=== PATIENT | male | born 1990 | race Caucasian/White ===

== ENCOUNTER 2017-11-27 02:39 | Emergency (ER) | payer OTHER, SELFPAY ==
[2017-11-27 02:41] VITALS: BP 147/87; PULSE 94; RESP 16; TEMP 36.7; O2SAT 98; BMI 32.8
--- NOTE | 2017-11-27 02:55 | RAD_ITS ---
STUDY: X-RAY CHEST REASON FOR EXAM: Male, 27 years old. Flank pain TECHNIQUE: Frontal view COMPARISON: None. FINDINGS: The lungs are clear and expanded. There is no demonstrated pleural abnormality. Normal size heart. Normal mediastinum and ana. Normal visualized pulmonary arteries. Normal visualized aortic arch and descending thoracic aorta. Normal visualized thoracic spine. Normal visualized ribs, clavicles, and shoulders. There is no demonstrated abnormality of the visualized soft tissue structures of the upper abdomen. RAD/Chest 1 View (Portable) IMPRESSION: Normal x-ray examination of the chest. Electronically Signed: Vaughn Leavitt MD at 3:55 EDT , Service support ,
--- NOTE | 2017-11-27 02:55 | EKG12_ITS ---
Test Reason : FLANK PAIN Blood Pressure : / mmHG Vent. Rate : 086 BPM Atrial Rate : 086 BPM P-R Int : 166 ms QRS Dur : 090 ms QT Int : 342 ms P-R-T Axes : 024 066 042 degrees QTc Int : 409 ms Normal sinus rhythm Normal ECG Confirmed by MEHRDAD SANCHEZ ([id number]), movie editor LUCIA MCGRAW ([id number] on 11/30/2017 1:39:52 PM Referred By: ANGELIKA Confirmed By:MEHRDAD SANCHEZ
--- NOTE | 2017-11-27 02:56 | CT_ITS ---
STUDY: CT ABDOMEN AND PELVIS WITHOUT CONTRAST REASON FOR EXAM: Male, 27 years old. Abdominal pain RADIATION DOSAGE (If Supplied By Facility): CTDIvol = ( 13.33 ) mGy, DLP = ( 669.00 ) mGycm TECHNIQUE: Transaxial images were obtained from the dome of the diaphragm to the symphysis pubis without oral contrast, and without intravenous contrast. Sagittal and coronal images were reconstructed. Individualized dose optimization techniques were used for this CT. COMPARISON: None. FINDINGS: The visualized lung bases are unremarkable. The visualized portions of the heart are within normal limits. Normal liver. Normal gallbladder and extrahepatic biliary system. Normal spleen. Normal pancreas. Normal bilateral adrenal glands. Normal right kidney. Normal left kidney. Normal visualized stomach. Normal small intestine. There are multiple colonic diverticula consistent with diverticulosis. The appendix is visualized and appears normal. Normal abdominal aorta. Normal inferior vena cava. Normal retroperitoneum. Normal urinary bladder. There is NO ascites or free air, abscess or adenopathy. Normal abdominal wall. Normal osseous structures. CT/Abdomen/Pelvis without Cont IMPRESSION: Normal unenhanced CT of the abdomen and pelvis. Electronically Signed: Vaughn Leavitt MD at 4:13 EDT , Service support ,
--- NOTE | 2017-11-27 02:59 | ED.VISSUMM ---
- ER Visit Summary Date of Service: 11/27/17 Chief Complaint: [] Flank pain History of Present Illness: The patient is a 27 M [] complaining of sudden onset of left flank pain that woke him from sleep approximately 1 hour ago. Reports sudden onset of nausea and vomiting. Denies chest pain or shortness of breath. Reports he is unsure of the underlying etiology of his symptoms. Denies fever. Denies loose stool. Denies abdominal pain. Physical Examination: [] Afebrile, vital signs stable. Middle-aged male in no acute distress. Cardiovascular exam is regular rate and rhythm. Lungs are clear to auscultation. Abdomen is soft and nontender. There is no significant CVA tenderness on palpation. There is no lower extremity edema. Test Results: [] Chest x-ray: Negative CT abdomen/pelvis: Negative EKG: Normal sinus rhythm, rate of 86 Labs: CBC, BMP, LFTs, urinalysis, d-dimer all within normal limits. Emergency Department Course and Treatment: [] Patient had a negative laboratory and diagnostic imaging workup. Patient refused morphine because he reportedly had to drive home. Patient received fluids and Phenergan. On serial exam he had improvement of symptoms. Workup was negative. Patient was encouraged to follow-up with PCP. Treatment Plan: [] Follow-up with PCP. Disposition: [] Discharge, stable. Impression: [] Flank pain, unknown etiology This note was generated with [employer] dictation software. It may contain incorrect words, spelling, and punctuation that were not noted in review of the chart prior to signing ED Disposition - Plan for ED Patient: Chief Complaint: Flank Pain Referrals: Ashish Castrejon DO [Primary Care Provider] -
[2017-11-27] MEDS: 0.9% Normal Saline 1,000 ML 1000 ML IV (03:03)
[2017-11-27 03:14] LABS: Mucous, Urine 0 SEEN /hpf (<or=2+)
--- NOTE | 2017-11-27 03:17 | ED.RN ---
MD AWARE THAT THE PT DECLINED THE MORPHINE BECAUSE HE HAS TO DRIVE SELF HOME.
[2017-11-27 03:18] LABS: Absolute Neutrophil Count 4.7 X10^3/uL (2.0-7.7); Basophil# 0.02 X10^3/uL; Basophil% 0.3 % (0-1); Eosinophil# 0.12 X10^3/uL; Eosinophils% 1.6 % (0-5); Hematocrit 40.2 % (40-54); Lymphocyte % 31.1 % (19-41); Mean Corp Hgb Conc 32.3 g/gl (32-36); Mean Corpuscular Hgb 29.1 pg (27.0-32.0); Mean Corpuscular Volume 90.1 fL (80-94); Mean Platelet Vol. 9.7 fl (6.2-12.0); Monocyte# 0.45 X10^3/uL; Monocyte% 5.8 % (0-10); Neutrophil # 4.72 X10^3/uL (2.7-7.7); Neutrophil % 61.1 % (47-70); POSITIVE COUNT NO; POSITIVE DIFFERENTIAL NO; POSITIVE MORPHOLOGY NO; Platelet Count 253 K/mm3 (150-450); RBC Distribution Width CV 12.4 % (11.6-14.6); RBC Distribution Width SD 40.4 fl (35.1-43.9); Red Blood Count 4.46 M/mm3 (4.6-6.2); White Blood Count 7.7 K/mm3 (4.4-11.0)
[2017-11-27 03:21] LABS: Color, Urine Yellow (Yellow); Glucose, Dipstick Normal (Normal); Ketone-Dipstick Negative (Negative); Leukocyte Esterase-Dipstick 25 /ul (Negative); Nitrite-Dipstick Negative (Negative); Occult Blood-Urine 25 /ul (Negative); Protein-Dipstick Negative (Negative); Specific Gravity, Urine 1.025 (1.002-1.030); Urine Bilirubin Dipstick Negative (Negative); Urine Clarity Clear (Clear); Urine Urobilinogen Normal (Normal)
[2017-11-27 03:29] LABS: Bacteria RARE /hpf (None Seen); Red Blood Cells-Urine 0-5 SEEN /hpf (0-5); Squamous Epithelial Cells - UA 0-5 SEEN /hpf (0-5); White Blood Cells 0-5 SEEN /hpf (0-5)
[2017-11-27 03:44] LABS: D-Dimer Quantitative (DVT/PE) 0.49 FEU/ug/m (0.27-0.49)
[2017-11-27 03:45] LABS: ALB/GLOB Ratio 1.2 RATIO (0.9-2.4); AST(SGOT) 30 U/L (15-37); Alanine Aminotransfer ALT/SGPT 62 U/L (16-61); Albumin, Serum 3.9 g/dL (3.2-5.0); Alkaline Phosphatase 54 U/L (45-117); Anion Gap 8 (5-15); BUN 12 mg/dL (7-18); BUN/Creat Ratio 13.1 RATIO (10-20); Calcium,Total 8.6 mg/dL (8.5-10.1); Chloride 108 mmol/L (98-107); Creatinine, Serum 0.92 mg/dL (0.70-1.30); EST Glomerular Filtration Rate 104 mL/min (>60); Est Glom Filt Rate - Afr Amer 126 mL/min (>60); Estimated Creatinine Clearance 122.33 ml/min; Globulin 3.3 g/dL (2.2-4.2); Glucose 98 mg/dL (74-106); Potassium 3.7 mmol/L (3.5-5.1); Protein, Total 7.2 g/dL (6.4-8.2); Sodium Level 143 mmol/L (136-145)
--- NOTE | 2017-11-27 04:39 | ED.DEP ---
ED Disposition - Plan for ED Patient: Disposition: Home or Assisted Living Chief Complaint: Flank Pain Instructions: ED Flank Pain Uncertain Cause Referrals: Ashish Castrejon DO [Primary Care Provider] -
[2017-11-27 04:47] VITALS: BP 142/60; PULSE 81; RESP 20; O2SAT 96
== END 2017-11-27 04:47 | disposition home or self-care (01) ==
PROVIDERS: Emergency Provider Emergency Medicine; Family Provider Student in an Organized Health Care Education/Training Program; PCP Student in an Organized Health Care Education/Training Program
DX: R10.9 Unspecified abdominal pain (principal)
CPT/HCPCS: 71045; 74176; 80053; 81001; 85025; 85379; 93005; 96361; 96374; 99285; J7030; A4216

== ENCOUNTER 2018-09-23 22:52 | Emergency (ER) | payer OTHER, SELFPAY ==
[2018-09-23 22:52] VITALS: BP 160/106; PULSE 102; RESP 20; TEMP 36.7; O2SAT 100; BMI 32.3
[2018-09-23 23:03] VITALS: BP 160/106; PULSE 96; RESP 19; O2SAT 97
--- NOTE | 2018-09-23 23:10 | ED.VISSUMM ---
- ER Visit Summary Date of Service: 09/23/18 Chief Complaint: [] Allergic reaction History of Present Illness: The patient is a 27 M stated he has had allergic reaction approximately 30 minutes ago gradual onset continuous. He has some hives on his chest and face and a scratchy throat. He saw urgent care today and was told he has a left-sided ear infection. He took 2 doses of amoxicillin. He was also placed on Tessalon Perles for a mild cough. He has never had a reaction to these medicines in the past. He is never taken Tessalon before. Physical Examination: [] Vital signs reviewed General: Well-nourished well-developed Head: Normocephalic atraumatic Eyes: Pupils equal round and reactive to light extraocular movements intact ENT: TMs clear no hemotympanum no trauma. Oropharynx shows no redness or irritation. It is wide open. Neck: Nontender full range of motion Cardiovascular: Regular rate rhythm no murmurs normal S1-S2 Respiratory: No distress clear to auscultation bilaterally chest nontender Abdomen: Soft nontender nondistended normal bowel sounds no masses Back: Nontender no CVA tenderness Extremities: Nontender active range of motion ?4 extremities no trauma Skin: Erythema to his face. Mild chest hives no trauma Neuro alert oriented cranial nerves II through XII intact normal strength sensation reflexes Test Results: [] Emergency Department Course and Treatment: [] Patient resting comfortably. Nursing staff establish an IV. Patient given Solu-Medrol for his reaction. Given oral Benadryl. He felt much better after treatment. Will continue Benadryl. I do not think he needs steroids. He will avoid amoxicillin as he shows no evidence of ear infection on exam here. He will avoid Tessalon. He will follow-up as an outpatient. Likely has had a penicillin reaction Treatment Plan: [] Disposition: [] Impression: [] Acute allergic reaction This note was generated with [employer] dictation software. It may contain incorrect words, spelling, and punctuation that were not noted in review of the chart prior to signing ED Disposition - Plan for ED Patient: Chief Complaint: Allergic Reaction Referrals: Ashish Castrejon DO [Primary Care Provider] -
--- NOTE | 2018-09-23 23:12 | ED.DEP ---
ED Disposition - Plan for ED Patient: Disposition: Home or Assisted Living Chief Complaint: Allergic Reaction Instructions: ED Allergic Reaction General Other Referrals: Ashish Castrejon DO [Primary Care Provider] -
[2018-09-23] MEDS: MethylPREDNISolone 125 MG/2 ML Vial IV (23:46)
[2018-09-23] MEDS: DiphenhydrAMINE 25 MG Capsule 50 MG PO (23:46)
[2018-09-23 23:48] VITALS: BP 147/76; PULSE 94; RESP 16
== END 2018-09-23 23:50 | disposition home or self-care (01) ==
PROVIDERS: Emergency Provider Emergency Medicine; Family Provider Student in an Organized Health Care Education/Training Program; PCP Student in an Organized Health Care Education/Training Program
DX: T78.40XA Allergy, unspecified, initial encounter (principal); X58.XXXA Exposure to other specified factors, initial encounter
CPT/HCPCS: 96374; 99282; A4216